=== PATIENT | male | born 1975 | race Caucasian/White ===

== ENCOUNTER → 2017-11-21 | Outpatient (CLI) | payer BC ==
--- NOTE | 2017-11-21 18:21 | DIAGNOSTIC IMAGING REPORT ---
MRI OF THE CERVICAL SPINE WITHOUT IV CONTRAST CLINICAL HISTORY: Cervicalgia. Upper extremity numbness. COMPARISON STUDY: No priors TECHNIQUE: MRI of the cervical spine is performed utilizing various T1 and T2-weighted sequences in the axial and sagittal planes. IV contrast was not administered for this examination. The examination is modestly compromised by motion artifact. FINDINGS: Cervical spine: Vertebral body height and alignment are maintained throughout the cervical spine. There is straightening of the cervical lordosis. The atlantodental articulation appears maintained. The spinous processes are intact. No destructive bony lesion is seen. Intervertebral discs: There is degenerative disc desiccation seen throughout the cervical spine. Mild loss of height is noted at C5-C6. The disc spaces are otherwise preserved. Spinal cord: The cervical spinal cord is normal in morphology and signal intensity. C2-C3: A posterior disc osteophyte complex abuts the ventral cord. Facet arthropathy is of no consequence. The neural foramina are patent. C3-C4: There is minimal posterior disc osteophyte complex. Predominant facet arthropathy causes minimal bilateral neural foraminal stenosis. C4-C5: There is a tiny posterior disc osteophyte complex of no consequence. Facet arthropathy causes minimal left-sided neural foraminal stenosis. C5-C6: A posterior disc osteophyte complex abuts the ventral cord. This is eccentric to the right and in conjunction with uncovertebral and facet arthropathy causes severe right neural foraminal stenosis. There is mild left neural foraminal stenosis. C6-C7: A posterior disc osteophyte complex effaces the ventral subarachnoid space. Uncovertebral and facet arthropathy cause mild left greater than right neural foraminal stenosis. C7-T1: Unremarkable. Soft tissues: The prevertebral and paraspinous soft tissues are within normal limits. Brain parenchyma: Partially imaged brain parenchyma at the skull base is normal in appearance. IMPRESSION: 1. The cervical spinal cord is normal in morphology and signal intensity. 2. Multilevel cervical spondylosis as detailed above, greatest at C5-C6 and C6-C7. See discussion for detailed [id number] analysis. 3. No destructive osseous lesion is identified. Dictated: 11/21/2017 5:06 PM Transcribed: 11/21/2017 6:21 PM [place] Electronically signed by: Bin Mendoza M.D. 11/21/2017 6:26 PM Dictated Date/Time: 11/21/2017 5:06 PM
== END | disposition home or self-care (01) ==
LOC: C.MRI 15:58
PROVIDERS: ATTEND Physician Assistant Medical
DX: M47.12 Other spondylosis with myelopathy, cervical region (principal)

== ENCOUNTER 2022-10-03 06:02 | Observation (INO) ==
--- NOTE | 2022-09-03 09:24 | PAT Medication Instructions ---
Medication Instructions Date of Service September 03, 2022 Home Medications empagliflozin 25 mg tablet (Jardiance) 25 mg PO QAM glipizide 5 mg tablet 5 mg PO QAM lisinopril 2.5 mg tablet 2.5 mg PO QAM DO NOT take the morning of surgery glipizide 5 mg tablet 5 mg PO QAM lisinopril 2.5 mg tablet 2.5 mg PO QAM STOP taking 3 days before surgery empagliflozin 25 mg tablet (Jardiance) 25 mg PO QAM Other Notes If you have any questions please call us at [phone] or [phone] or [phone] or [phone]
--- NOTE | 2022-09-05 10:17 | Anesthesiology Consultation ---
Date of Service September 05, 2022 Assessment & Plan (1) Encounter for pre-operative examination: - COVID screening: Per assessment on 09/05: No known COVID-19 positive contacts or current COVID-19 related symptoms. Travel screen negative. At surgeon discretion if preop Covid testing being done. - Check BSG AM DOS Chart Review Chart Review: Acceptable Risk for Surgery and Patient seen in Pre Admission Testing History Surgery Operation Date: 09/30/22 07:45 Proposed Procedures p C5-C6 Anterior Cervical Discectomy and Fusion, Spinal Cord Monitoring - Geovani Freire DO Height/Weight Height: 5 ft 10 in Weight: 117.3 kg Allergies Allergy/AdvReac Type Severity Reaction Status Date / Time No Known Drug Allergies Allergy Verified 09/02/22 16:14 Medications Home Medications Medication Instructions Recorded Confirmed Last Taken empagliflozin 25 mg tablet 25 mg PO QAM 09/02/22 09/02/22 Unknown (Jardiance) glipizide 5 mg tablet 5 mg PO QAM 09/02/22 09/02/22 Unknown lisinopril 2.5 mg tablet 2.5 mg PO QAM 09/02/22 09/02/22 Unknown Past Medical History Medical History Diabetes mellitus, type 2 Elevated BP without diagnosis of hypertension Elevated BP + renal protection - reason for Lisinopril History of neck pain History of numbness B/L arm, Right hand r/t neck issues Obesity (BMI 30-39.9) Sleep apnea CPAP (compliant) Exercise / Class Metabolic Activity II 4-5 Yardwork/Stairs/Walk up hill Past Surgical History Surgical History Hx of appendectomy Hx of arthroscopic knee surgery R/L Hx of arthroscopy of shoulder Right Hx of tonsillectomy Past Anesthesia History No Hx of Anesthesia Complications and No Family Hx of Anesthesia Complications History of PONV No Hx of PONV and No Hx of Motion Sickness Social History Smoking Status: Never smoker Do You Dip or Chew Tobacco: No (Quit 15 years ago) Hx Alcohol Use: No (No ETOH use x 2 months) Hx Substance Use: No substance use type: does not use Review of Systems Patient denies chest pain, shortness of breath, dyspnea on exertion, fever, chills, cough, wheezing, palpitations. Physical Exam Vital Signs VITALS BP 132/82 P 89 TEMP 98.8 SP02 98%RA RESP 18 PHYSICAL Significantly decreased cervical extension range of motion. Full TMJ range of motion. TMD 4 finger breaths Mallampati Score 3 Dentition: missing side Lungs: clear throughout to auscultation Cardiac: regular rate and rhythm, no murmurs noted Spine: normal Carotid arteries: negative bruit Extremities: no edema Lab Results Anesthesia Preop Results Results Anesthesia Widget: WBC 7.74 K/ul (4.8-10.8) 09/05/22 Hgb 16.4 g/dl (14.0-18.0) 09/05/22 Hct 48.8 % (40.1-51.0) 09/05/22 Plt 208 K/uL (130-400) 09/05/22 Na 136 mmol/L (136-145) 09/05/22 K 4.3 mmol/L (3.5-5.1) 09/05/22 Cl 102 mmol/L (98-107) 09/05/22 CO2 28 mmol/L (21-32) 09/05/22 BUN 19 mg/dl (6-23) 09/05/22 Creat 0.82 mg/dl (0.6-1.4) 09/05/22 Glucose Level 94 mg/dl (70-99(Fasting)) 09/05/22 PT 10.9 Seconds (9.0-12.0) 09/05/22 PTT 28.7 Seconds (21.0-31.0) 09/05/22 INR 1.0 (0.9-1.1) 09/05/22 HA1c 6.1 % (4.5-5.6) H 09/05/22 Urine Color Yellow 09/05/22 Urine Appearance Clear (Clear) 09/05/22 Urine pH 6.5 (4.5-7.5) 09/05/22 Urine Specific [place] 1.029 (1.000-1.030) 09/05/22 Urine Protein Negative (Negative) 09/05/22 Urine Glucose (UA) 3+ (Negative) H 09/05/22 Urine Ketones 1+ (Negative) H 09/05/22 Urine Blood Negative (Negative) 09/05/22 Urine Nitrite Negative (Negative) 09/05/22 Urine Bilirubin Negative (Negative) 09/05/22 Urine Urobilinogen Negative (Negative) 09/05/22 Urine Leukocyte Esterase Negative (Negative) 09/05/22 Blood Type O Negative 09/05/22 Antibody Screen NEGATIVE 09/05/22 Testing Electrocardiogram Date: 09/05/22 Findings: + NSR @ (83) Chest X-Ray Date: 05/17/22 Findings: + NAD COVID-19 Risk Screen Screening Information COVID-19 Screen Date: 09/05/22 Exposure 21 Days Family/Household +COVID Last 21 Days: No Exposure 10 Days Any COVID Exposure Last 10 Days: No Symptoms Last 10 Days Experienced COVID Sx Last 10 Days: No + COVID 0-90 Days COVID + in Last 0-90 Days: No
[~2022-10-03 06:02] MED LIST: ACETAMINOPHEN 500 MG TAB PO SCH; CeleBREX 200 MG CAP PO SCH; GABAPENTIN 900 MG DOSE PO SCH; LR 15ML/HR IV SCH
[2022-10-03] MEDS ORDERED: ceFAZolin 330 MG/ML 1 GM VIAL ONE (07:04)
[2022-10-03] MEDS: LR 15ML/HR IV SCH ×2 (07:20→08:03)
[2022-10-03] MEDS ORDERED: ONDANSETRON INJ 2 MG/ML 2 ML VIAL ONE (07:21)
[2022-10-03] MEDS ORDERED: PROPOFOL IV EMULSION 10 MG/ML 20 ML VIAL IV ONE (07:21)
[2022-10-03] MEDS ORDERED: fentaNYL citrate 100 MCG/2 ML VIAL ONE (07:21)
[2022-10-03] MEDS ORDERED: LIDOCAINE 2% MPF LOCAL 5 ML VIAL INFIL ONE (07:21)
[2022-10-03] MEDS ORDERED: MIDAZOLAM HCL 1 MG/ML 2ML VIAL ONE (07:21)
[2022-10-03] MEDS ORDERED: DEXAMETHASONE SOD INJ 4 MG/ML VIAL ONE (07:21)
[2022-10-03] MEDS ORDERED: ROCURONIUM BROMIDE 10 MG/ML 5 ML VIAL IV ONE (07:21)
[2022-10-03] MEDS ORDERED: ATROPINE SULFATE 0.1 MG/ML 10ML SYR IV PRN (07:32)
[2022-10-03] MEDS ORDERED: ONDANSETRON INJ 2 MG/ML 2 ML VIAL IV PRN ×2 (07:32→11:30)
[2022-10-03] MEDS ORDERED: ePHEDrine sulfate 50 MG/ML AMP IV PRN (07:32)
[2022-10-03] MEDS ORDERED: HYDROmorphone INJ 2 MG/ML SYR/VIAL IV PRN (07:32)
--- NOTE | 2022-10-03 07:48 | History & Physical Bridge Note ---
Date of Service October 03, 2022 History & Physical Bridge Note I have examined the patient, reviewed the History & Physical and in the interval since the performance of the History & Physical I have noted the following changes of clinical significance: no changes noted
--- NOTE | 2022-10-03 07:49 | History & Physical Report ---
Date of Service October 03, 2022 Assessment & Plan (1) Herniation of cervical intervertebral disc with radiculopathy: Plan: C5-C6 anterior cervical discectomy and fusion History of Present Illness Chief Complaint: Neck and arm pain Primary Care Provider: Stephanie Quesada This is a 47-year-old male who presents with chronic persistent neck and arm pain after failing course of nonoperative care is here for surgical invention. Allergies Allergy/AdvReac Type Severity Reaction Status Date / Time No Known Drug Allergies Allergy Verified 10/03/22 06:57 Home Medications Medication Instructions Recorded Confirmed Type empagliflozin 25 mg tablet 25 mg PO QAM 09/02/22 10/03/22 History (Jardiance) glipizide 5 mg tablet 5 mg PO QAM 09/02/22 10/03/22 History lisinopril 2.5 mg tablet 2.5 mg PO QAM 09/02/22 10/03/22 History Past Med/Surg History Medical History (Updated 10/03/22 @ 07:48 by Geovani Freire DO) Bleeding from the nose just from the right nostril. pt states "has been like this since I was a teenager." "my nose bleeds easy. increased in the winter." Diabetes mellitus, type 2 Elevated BP without diagnosis of hypertension Elevated BP + renal protection - reason for Lisinopril History of neck pain History of numbness B/L arm, Right hand r/t neck issues Obesity (BMI 30-39.9) Sleep apnea CPAP (compliant) Surgical History (Updated 10/03/22 @ 06:57 by Neena Orellana RN) Hx of appendectomy Hx of arthroscopic knee surgery left knee Hx of arthroscopy of shoulder Right Hx of tonsillectomy Social History Smoking Status: Never smoker Second Hand Exposure: No; Do You Dip or Chew Tobacco: No (Quit 15 years ago); Tobacco Cessation Education Requested by Patient: No Hx Alcohol Use: Yes Alcohol type: beer and hard liquor Hx Substance Use: No Preferred Language: Armenian Communication Ability: Effective 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
[2022-10-03] MEDS ORDERED: HYDROmorphone INJ 2 MG/ML SYR/VIAL ONE (08:32)
[2022-10-03] MEDS ORDERED: KETAMINE 50 MG/5 ML SYRINGE ONE (08:34)
[2022-10-03] MEDS ORDERED: FLOSEAL HEMOSTATIC MATRIX 10ML TOP ONE (08:40)
[2022-10-03] MEDS ORDERED: PHENYLEPHRINE 100MCG/ML 5ML SYR ONE (09:05)
[2022-10-03] MEDS ORDERED: GLYCOPYRROLATE 0.2 MG/ML VIAL ONE (09:16)
[2022-10-03] MEDS ORDERED: NEOSTIGMINE METHYLSULFATE 1 MG/ML 10ML VIAL ONE (09:16)
--- NOTE | 2022-10-03 09:51 | Operative Report ---
Post Operative Report Pre & Post Diagnosis Operation Date: 10/03/22 07:45 Pre-Op Diagnosis: Cervical spinal stenosis with radiculopathy Post-Op Diagnosis: Same I identified the patient and participated in the time-out.: Yes Procedure Operation Date: 10/03/22 07:45 Actual Procedures #1 anterior cervical discectomy with bilateral foraminotomies C5-C6 C6-C7. #2 anterior cervical arthrodesis C5-C6 C6-C7. #3 placement of Spira 9 mm cage with I factor C5-C6 C6-C7. #4 placement of K2 M plate and screws from C5-C7. Surgeon Geovani Freire, Chief Commercial Officer None Estimated Blood Loss 10 Findings See Below Patient is 5 foot 10 weighing over 118 kg with a BMI in excess of 37. Patient's body habitus did contribute to significant technical difficulty requiring her deeper retractors longer instruments. This at least 50% increased operative time. Specimens None Indications This is a 47-year-old male who presents above-mentioned diagnosis after failing since course of nonoperative care is here for surgical invention. Description of Procedure Patient was met with identified informed consent obtained. 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 All bony prominences well-padded eyes inspected to ensure no external pressure placed upon. This point the anterior cervical spine was prepped and draped normal sterile fashion. With assistance of fluoroscopy defy the C5-C6 level. Transverse incision was placed on the right anterior aspect the cervical spine overlying his region. Due to his body habitus I was inhibited by the clavicle. Blunt dissection with assistance of bipolar Cardizem performed down to and exposing the anterior cervical spine and see 5 C6 was also able to access C6-C7. A self-retaining retractors placed. Then performed a complete discectomy of C5-C6 out to the uncovertebral's bilaterally. Edward distracting pins utilized to assist in visualization. Removed all posterior annular fibers longitudinal ligament bilateral foraminotomies performed. Endplates burred to subcortical any bone and a 9 mm spiral cage filled with I factor tapped in position. I then proceeded to C6-C7. Again marked spondylosis noted. I performed a complete discectomy to the uncovertebral's bilaterally. Edward distracting pins again utilized. Removed all posterior annular fibers longitudinal ligament bilateral foraminotomies performed. Again a 9 mm spiral cage with I factor tapped in position. Distracting apparatus was removed all anterior osteophytes burred to smooth cortical surface and a K2 M plate and screws applied with the assistance of fluoroscopy. The incision was then copiously irrigated explored to ensure no damage to surrounding structures remaining bleeding. 10 round HUDSON drain inserted. The incision was then closed with 2 Vicryl in the fascia and 4 Monocryl for final closure. Steri-Strip sterile dressings placed. Patient waken taken to PACU in stable condition. I attest to the content of the Intraoperative Record and any orders documented therein. Any exceptions are noted below.
--- NOTE | 2022-10-03 09:52 | History & Physical Bridge Note ---
Date of Service October 03, 2022 History & Physical Bridge Note I have examined the patient, reviewed the History & Physical and in the interval since the performance of the History & Physical I have noted the following changes of clinical significance: no changes noted Patient continues to have bilateral arm pain now right involving the entire right hand and all digits. He is requested that we address the C6-C7 level at the time of surgery if I am able to access this level in addition to the C5-C6.
[2022-10-03] MEDS: fentaNYL citrate 100 MCG/2 ML VIAL IV PRN ×2 (10:23→10:28)
[2022-10-03] MEDS ORDERED: HYDROmorphone INJ 0.5 MG/0.5 ML SYR ONE (10:33)
--- NOTE | 2022-10-03 10:36 | Fluoroscopy Report ---
INTRAOPERATIVE RADIOGRAPHS CLINICAL HISTORY: C5-C7 spinal fusion. Fluoroscopy time: 16 seconds. FINDINGS: 2 spot fluoroscopic views of the cervical spine are presented. There has been discectomy at C5-C6 and C6-C7 with anterior spinal fusion at C5-C7. The orthopedic hardware appears intact. An end otracheal tube is in place. IMPRESSION: Intraoperative images from cervical spinal fusion surgery as above. Electronically signed by: Bin Mendoza M.D. 10/03/2022 10:35 AM
--- NOTE | 2022-10-03 11:27 | Anesthesiology Progress Note ---
Date of Service October 03, 2022 Anesthesia Post Procedure Vital Signs Vital Signs: Temp Pulse Resp BP Pulse Ox O2 Del Method O2 Flow Rate 10/03/22 11:05 72 16 128/79 96 Nasal Cannula 2 10/03/22 10:55 70 17 125/77 96 Nasal Cannula 2 10/03/22 10:45 36.1 C L 69 17 129/73 96 Oxymask 5 10/03/22 10:35 68 16 128/74 97 Oxymask 5 10/03/22 10:25 64 16 120/72 97 Oxymask 5 10/03/22 10:15 63 18 122/82 97 Oxymask 5 10/03/22 10:06 36.4 C L 72 18 130/80 96 Oxymask 5 10/03/22 06:58 37.0 C 91 H 20 154/92 H 100 Room Air Pain Intensity Right Arm: Pain Intensity: 5 Right Shoulder: Pain Intensity: 6 Neck: Pain Intensity: 7 Transfer of Care Handoff Completed per policy Notes Mental Status: alert / awake / arousable and participated in evaluation Patient Amnestic to Procedure: Yes Nausea / Vomiting: adequately controlled Pain: adequately controlled Airway Patency, RR, SpO2: stable & adequate BP & HR: stable & adequate Hydration State: stable & adequate Anesthetic Complications: no major complications apparent and Pt Satisfied with anesthetic care
[2022-10-03] MEDS ORDERED: dexAMETHasone 8 MG in SYRINGE 0 ML IV PRN (11:30)
[2022-10-03] MEDS ORDERED: ONDANSETRON 4 MG OD TAB PO PRN (11:30)
[2022-10-03] MEDS ORDERED: ACETAMINOPHEN 1,000 MG/100 ML VIAL IV PRN (11:30)
[2022-10-03] MEDS ORDERED: traMADol HCL 50 MG TABLET PO PRN (11:30)
[2022-10-03] MEDS ORDERED: diphenhydrAMINE Capsule 25 MG CAP PO PRN (11:30)
[2022-10-03] MEDS ORDERED: HYDROmorphone INJ 1 MG/ML SYRINGE IV PRN (11:30)
[2022-10-03] MEDS ORDERED: PROMETHAZINE HCL 12.5 MG in SODIUM CHLORIDE 0.9% 50 ML IV PRN (11:30)
[2022-10-03] MEDS ORDERED: FAMOTIDINE 20 MG TAB PO PRN (11:30)
[2022-10-03] MEDS ORDERED: bisacodyL 10 MG SUPP PR PRN (11:30)
[2022-10-03] MEDS ORDERED: hydrOXYzine HCl 25 MG TAB PO PRN (11:30)
[2022-10-03] MEDS ORDERED: MAGNESIUM HYDROXIDE SUSP 30 ML UDC PO PRN (11:30)
[2022-10-03] MEDS ORDERED: LORazepam 0.5 MG in SYRINGE 0 ML IV PRN (11:30)
[2022-10-03] MEDS ORDERED: DO NOT ADMINISTER PNEUMOCOCCAL VACCINE PRN (11:30)
[2022-10-03] MEDS ORDERED: LORazepam 0.5 MG TAB PO PRN (11:30)
[2022-10-03] MEDS ORDERED: NALOXONE HCL 0.4 MG/1 ML VIAL/CARP IV PRN (11:30)
[2022-10-03] MEDS ORDERED: METOCLOPRAMIDE HCL INJ 5 MG/ML 2 ML VIAL IV PRN (11:30)
[2022-10-03] MEDS ORDERED: SOD PHOSPHATE/SOD BIPHOSPHATE ENEMA 132 ML BTL PR PRN (11:30)
[2022-10-03] MEDS ORDERED: RACEPINEPHRINE 2.25% NEBU SOLN 0.5 ML VIAL INH PRN (11:30)
[2022-10-03] MEDS ORDERED: ALUMINUM/MAGNESIUM SUSP 30 ML UDC PO PRN (11:30)
[2022-10-03] MEDS ORDERED: PHARMACY GLYCEMIC MGMT CONSULT PRN (11:30)
[2022-10-03] MEDS ORDERED: ACETAMINOPHEN 500 MG TAB PO PRN (11:30)
[2022-10-03] MEDS ORDERED: HYDROmorphone INJ 0.5 MG/0.5 ML SYR IV PRN (11:30)
[2022-10-03] MEDS ORDERED: SODIUM CHLORIDE 0.9% 1000ML 1,000 ML IV SCH (11:30)
[2022-10-03] MEDS ORDERED: DO NOT ADMINISTER FLU VACCINE PRN (11:30)
[2022-10-03] MEDS: ACETAMINOPHEN 500 MG TAB PO SCH (11:58)
[2022-10-03] MEDS ORDERED: CARBOHYDRATES FOR HYPOGLYCEMIA PO PRN (13:00)
[2022-10-03] MEDS ORDERED: GLUCAGON FOR INJ 1 MG VIAL IM PRN (13:00)
[2022-10-03] MEDS ORDERED: LANTUS PER UNIT CHARGE SQ ONE ×2 (13:00→21:00)
[2022-10-03] MEDS ORDERED: GLUCOSE 40% GEL 15 GM TUBE PO PRN (13:00)
[2022-10-03] MEDS ORDERED: DEXTROSE 50% 50 ML SYRINGE IV PRN (13:00)
[2022-10-03] MEDS ORDERED: GLUCOSE 10 TAB/TUBE PO PRN (13:00)
--- NOTE | 2022-10-03 14:19 | Pharmacy Report ---
Pharmacy Glycemic Short Note 2 - Date of Service October 03, 2022 - Glycemic Short BSG Results (Last 24 hours): 10/03/22 10/03/22 10/03/22 06:35 10:07 14:10 POC Glucose 189 H 207 H 250 H OUTPATIENT ANTIDIABETIC REGIMEN: * empagliflozin 25mg PO qAM * glipizide 5mg PO qAM HbA1C: 6.1% (09/05/22) ASSESSMENT: * Patient is a type 2 diabetic POD #0 anterior cervical discectomy. Pharmacy consulted to assist with glycemic management. * Pre op BSG, 189mg/dL. Post-op BSG-207mg/dL. Patient received dex 8mg IV X 1 in OR and ordered dex 6mg IV daily scheduled to start tomorrow. * Clear liquid diet ordered * Plan for Lantus 12 units X 1 this afternoon. Likely will require additional basal (reassess in AM). Novolog wt based moderate stress with HS checks tonight. PLAN FOR INPATIENT GLYCEMIC CONTROL: * Hold outpatient oral diabetes medications * Basal insulin * Lantus 12 units SQ now X 1 * Bolus insulin * NovoLog per scale ACHS or Q6hrs while NPO * Goal Range: Low 110 mg/dL - High 140 mg/dL * Correction Factor: 25 mg/dL/unit * Nutritional / Prandial insulin per carb ratio of 1 unit per 9 grams CHO consumed
[2022-10-03] MEDS: oxyCODONE HCL IR 5 MG TAB (IMMEDIATE RELEASE) PO PRN (14:23)
[2022-10-03] MEDS: INSULIN ASPART PER UNIT SC SCH ×3 (14:30→21:09)
[2022-10-03] MEDS: ceFAZolin 2000MG 2,000 MG/15 ML SYR IV SCH (17:54)
[2022-10-03] MEDS ORDERED: DOCUSATE SODIUM/SENNA 50/8.6MG TAB PO SCH (21:00)
[2022-10-04] MEDS: INSULIN ASPART PER UNIT SC SCH ×3 (01:07→08:23)
[2022-10-04] MEDS: ceFAZolin 2000MG 2,000 MG/15 ML SYR IV SCH (01:08)
[2022-10-04] MEDS: oxyCODONE HCL IR 5 MG TAB (IMMEDIATE RELEASE) PO PRN ×2 (01:08→08:19)
[2022-10-04] MEDS ORDERED: POLYETHYLENE (MIRALAX) 17 GM PACK PO SCH (06:00)
[2022-10-04] MEDS: ACETAMINOPHEN 500 MG TAB PO SCH (06:23)
[2022-10-04] MEDS ORDERED: LANTUS PER UNIT CHARGE SQ ONE (09:00)
[2022-10-04] MEDS ORDERED: lisinopril 2.5 MG TAB PO SCH (09:00)
[2022-10-04] MEDS ORDERED: EMPAGLIFLOZIN 25 MG TAB PO SCH (09:00)
[2022-10-04] MEDS ORDERED: dexAMETHasone 6 MG in SYRINGE 0 ML IV SCH (09:00)
[2022-10-04] MEDS ORDERED: glipiZIDE 5 MG TAB PO SCH (09:00)
--- NOTE | 2022-10-04 12:30 | Discharge Summary ---
Date of Service October 04, 2022 Admission HPI Per Admitting Provider This is a 47-year-old male who presents with chronic persistent neck and arm pain after failing course of nonoperative care is here for surgical invention. Principal Diagnosis Cervical spinal stenosis with radiculopathy Discharge Data Allergies Allergy/AdvReac Type Severity Reaction Status Date / Time No Known Drug Allergies Allergy Verified 10/03/22 06:57 Procedures Performed Operation Date: 10/03/22 07:45 Actual Procedures p C5-C7 Anterior Cervical Discectomy and Fusion(Not Applicable) - Geovani Freire DO Ordered Studies 10/03/22 07:45 FL cervical 2-3V Routine Hospital Course (1) Herniation of cervical intervertebral disc with radiculopathy: Patient 1 anterior cervical discectomy and fusion tolerated as well as taken to orthopedic for postoperative. Postop day 1 he was swallowing well. No hoarseness. Excellent strength testing. HUDSON drain decreasing appropriately. Subsequently discharged home. Discharge orders instructions from the chart for further review. Total Time Total Time Spent Total Time Spent (In Minutes): 20 minutes Discharge Plan Discharge Items Patient Disposition: Home - Self-Care Reason For Visit: Spondylosis with Myelopathy, Cervical Region Discharge Diagnosis: Cervical spinal stenosis with radiculopathy Activity: As commented below Non-emergency contact: Primary Care Provider Call non-emergency contact if: you have any medication questions Follow-up/Referrals: Stephanie Quesada D.O. [Primary Care Provider] - Diet: Regular Addtl Attending Provider Instructions: ACTIVITY RECOMMENDATIONS: SELF CARE INSTRUCTIONS AFTER CERVICAL FUSIONS 1. No smoking. Smoking drastically decreases the chance of a solid fusion. 2. No bending, lifting more than 5 pounds, or twisting (roll like a log when turning in bed). 3. You may shower 3 days after surgery. Thoroughly dry wound. Do not soak in the tub. 4. Cervical collar: Must be worn at all times including sleeping. You may remove the brace only to bath, eat and if you are sitting in a recliner. 5. Please walk as much as you can for exercise. Gradually increase the distance that you walk as your endurance increases. SPECIAL CARE INSTRUCTIONS: VERY IMPORTANT TO READ AND REVIEW A. Do not take any anti-inflammatory medications (i.e. Indocin, Advil, Aspirin, Naprosyn, Aleve, Motrin, etc.) as these may inhibit the chance of a solid fusion. Tylenol is okay to take. B. Your surgical incision has been closed with a cosmetic suture under the skin that will dissolve in about 6 weeks. In 14 days, you can use a pair of clean scissors and cut the suture that is left outside of the skin at the ends of your incision. C. Complications are uncommon, but please contact us if you have any signs or symptoms of: 1. wound infection (fever higher than 102.5 degrees F, redness, separation of wound, drainage, or increasing pain from the incision) 2. blood clots in legs (pain, swelling, redness and warmth in legs) 3. urinary tract infection (fever higher than 102.5 degrees, burning upon urination or increased frequency of urination) 4. nerve problems (inability to walk on your toes or heels, numbness, loss of bowel or bladder control) 5. any other symptoms that concern you. D. Please call the office at if you have any concerns or questions about your operation or recovery. MANAGING PAIN AFTER SPINAL SURGERY 1. Narcotic medication is intended for short-term use and will be provided for surgical pain. Surgical pain usually lasts for a period of 4-6 weeks. Narcotic medication includes Percocet, Vicodin, Darvocet, Tylenol #3 or Lortab. 2. Longer-term pain is more appropriately treated with non-narcotic medication such as Tylenol ES. 3. Muscle spasm is not appropriately treated with narcotics. Muscle relaxers such as Soma, Flexeril or Skelaxin can be used along with Tylenol ES. 4. Remember that we all live with some "aches and pains". This is not unusual or uncommon after an injury or as we get older. 5. We will provide appropriate medication within the normal guidelines of their prescribed use. We will also be very cautious and aware of potential abuse and extended duration of patients' medication needs. 6. Please allow 2-3 days to process refills. Prescriptions will not be mailed but must be picked up at the office. FOLLOW UP VISIT: Keep your scheduled follow-up appointment. Any questions, please call the office at . Pending Studies at Discharge: No Stand-Alone Forms: [employer] Clothing, Smoking Cessation Medications and DC Order Prescriptions: New tramadol 50 mg tablet 50 mg PO Q6H PRN (Reason: pain, moderate) Qty: 30 0RF oxycodone 5 mg tablet 5 mg PO Q6H PRN (Reason: pain, severe) Qty: 20 0RF Continued lisinopril 2.5 mg Tablet 2.5 mg PO QAM glipizide 5 mg Tablet 5 mg PO QAM Jardiance 25 mg Tablet 25 mg PO QAM Discharge Orders: Discharge Order (Routine); Ordered 10/04/22 Ordered By: Geovani Fung/Other Patient Handouts: Cervical Fusion Dc Admission Data Admit Date/Time: 10/03/22 09:59 Attending Provider: Geovani Freire Admit Provider: Geovani Freire Primary Care Provider: Stephanie Quesada Other Interventions: Discharge Summary Assessment (RN) Last Done: 10/04/22 10:30
== END 2022-10-04 11:18 | disposition home or self-care (01) ==
LOC: ASU 06:02 → INTOOBSV 09:59 → 3E 09:59